=== PATIENT | male | born 1960 | race Caucasian/White ===

== ENCOUNTER 2021-05-28 16:21 | Emergency (ER) | payer OTHER ==
[~2021-05-28] VITALS: Ht 175.3 cm; Wt 81.7 kg
[2021-05-28] MEDS ORDERED: EPIPEN 2-P0.3 MG/0.3 IM (18:12)
[2021-05-28 18:13] VITALS: BP 132/85
== END 2021-05-28 18:14 | disposition home or self-care (01) ==
LOC: ER 16:21
DX: T63.461A Toxic effect of venom of wasps, accidental (unintentional), initial encounter (principal); R51.9 Headache, unspecified; R42 Dizziness and giddiness; R20.0 Anesthesia of skin; Z91.038 Other insect allergy status; Y92.89 Other specified places as the place of occurrence of the external cause